=== PATIENT | male | born 1990 | race Caucasian/White ===

== ENCOUNTER 2020-11-09 14:27 | Emergency (ER) | payer MEDICAID ==
[~2020-11-09] VITALS: Ht 167.6 cm; Wt 77.3 kg
[2020-11-09 14:30] VITALS: BP 133/60
[2020-11-09] MEDS ORDERED: LIDOcaine 1% W/epiNEPHrine 1:200,000 10ml vial IJ ONE (15:35)
[2020-11-09] MEDS ORDERED: amox tr/potassium clavulanate 875/125mg TAB PO ONE (16:00)
[2020-11-09] MEDS ORDERED: rabies immune globulin/PF 150 unit/ml inj IMVAC STA (16:04)
[2020-11-09] MEDS ORDERED: rabies vaccine (PCEC)/PF 2.5 unit kit IMVAC ONE (16:05)
[2020-11-09] MEDS ORDERED: AMOX-422 PO (16:47)
== END 2020-11-09 17:24 | disposition home or self-care (01) ==
LOC: ER 14:28
DX: S61.411A Laceration without foreign body of right hand, initial encounter (principal); Z20.3 Contact with and (suspected) exposure to rabies; Z79.2 Long term (current) use of antibiotics; Z72.89 Other problems related to lifestyle; W54.0XXA Bitten by dog, initial encounter; Y93.89 Activity, other specified; Y92.89 Other specified places as the place of occurrence of the external cause; Y99.8 Other external cause status
CPT/HCPCS: 73130; 90375; 90471; 90675; 96372; 99283

== ENCOUNTER 2021-01-19 02:50 | Emergency (ER) | payer MEDICAID ==
[~2021-01-19] VITALS: Ht 167.6 cm; Wt 70.0 kg
[2021-01-19] MEDS ORDERED: proparacaine 0.5% ophthalmic drops 15ml EACHEYE ONE (02:55)
--- NOTE | 2021-01-19 02:56 | NUR ---
MD Fagan at bedside and checked to ph level in the eyes, which resulted as 7.58. Medicated eye drops were then administered by .
--- NOTE | 2021-01-19 03:02 | NUR ---
CALLED POISON CONTROL AND SPOKE WITH VINCENT. RECOMMENDATIONS: CHECK VISUAL ACUITY, CHECK PH, IRRIGATE EYE AND RECHECK PH 30 MINUTES AFTER IRRIGATION. IF CORNEAL ABRASION RECOMMEND OPHTHALOMOLOGIST.
--- NOTE | 2021-01-19 03:04 | NUR ---
MD Fagan still at bedside and has completed eye exam.
[2021-01-19] MEDS ORDERED: erythromycin ophthalmic ointment 1gm tube RIGHTEYE ONE (03:50)
[2021-01-19] MEDS ORDERED: ERYT1OIN6 RIGHTEYE (03:59)
== END 2021-01-19 04:21 | disposition home or self-care (01) ==
LOC: ER 02:50
DX: S05.01XA Injury of conjunctiva and corneal abrasion without foreign body, right eye, initial encounter (principal); Z72.89 Other problems related to lifestyle; Z79.899 Other long term (current) drug therapy; X58.XXXA Exposure to other specified factors, initial encounter; Y93.89 Activity, other specified; Y92.89 Other specified places as the place of occurrence of the external cause; Y99.8 Other external cause status
CPT/HCPCS: 99283